=== PATIENT | female | born 1955 | race Caucasian/White ===

== ENCOUNTER 2024-12-06 09:07 | Inpatient (IN) | payer OTHER, SELFPAY ==
[2024-12-06 09:09] VITALS: BP 182/87; PULSE 89; RESP 16; TEMP 36.1; O2SAT 99; BMI 33.9
[2024-12-06 09:11] VITALS: BP 180/80; PULSE 82; RESP 16; TEMP 36.6; O2SAT 99
--- NOTE | 2024-12-06 09:36 | CT_ITS ---
EXAM: CT Abdomen and Pelvis With Intravenous Contrast CLINICAL INDICATION: TECHNIQUE: Axial computed tomography images of the abdomen and pelvis with intravenous contrast. This CT exam was performed using one or more of the following dose reduction techniques: automated exposure control, adjustment of the mA and/or kV according to patient size, and/or use of iterative reconstruction technique. COMPARISON: No relevant prior studies available. FINDINGS: LUNG BASES: Unremarkable. No mass. No consolidation. ABDOMEN: LIVER: Hepatomegaly with fatty infiltration. GALLBLADDER AND BILE DUCTS: Unremarkable. No calcified stones. No ductal dilation. PANCREAS: Unremarkable. No mass. No ductal dilation. SPLEEN: Unremarkable. No splenomegaly. ADRENALS: Unremarkable. No mass. KIDNEYS AND URETERS: Severe bilateral hydronephrosis, bilaterally, greater on the right. No obstructing calculus. STOMACH AND BOWEL: Fecal retention in the colon consistent with constipation. No obstruction. No mucosal thickening. PELVIS: APPENDIX: No findings to suggest acute appendicitis. BLADDER: Unremarkable. No mass. REPRODUCTIVE: Unremarkable as visualized. ABDOMEN and PELVIS: INTRAPERITONEAL SPACE: Unremarkable. No free air. No significant fluid collection. BONES/JOINTS: No acute fracture. No dislocation. SOFT TISSUES: Unremarkable. VASCULATURE: Unremarkable. No abdominal aortic aneurysm. LYMPH NODES: Unremarkable. No enlarged lymph nodes. CT/Abdomen/Pelvis W IV Cont ONLY IMPRESSION: 1. Severe bilateral hydronephrosis, bilaterally, greater on the right. No obs tructing calculus. 2. Hepatomegaly with fatty infiltration. 3. Fecal retention in the colon consistent with constipation. Reading [facility]
--- NOTE | 2024-12-06 09:42 | EDS_ITS ---
HPI History of Present Illness Chief Complaint: Flank Pain Narrative Narrative: Patient is a 69-year-old female with no known significant past medical history who presented to the emerged part with a chief complaint of left flank pain. Patient states that her symptoms started again recently. She states that in October she was diagnosed with a urinary tract infection was placed on Keflex this was not sent for culture she states. Patient states that she was seen at [facility] had blood work and a CT performed at that point time was noted to be abnormal. She was referred to urology and states that they attempted to call urology however was unable to get in until December therefore they came here for further evaluation management. Patient denies any trauma or picking up any heavy. Patient states that her pain is on her right side and wraps around to the anterior portion of her abdomen PFSH PFS Medical History no medical history Home Medications ?Medication ?Instructions ?Recorded ?Last Taken ?Type NK 12/06/24 Unknown History Allergy/AdvReac Type Severity Reaction Status Date / Time No Known Allergies Allergy Verified 12/06/24 09:08 Family History no significant family his Surgical History no surgical history Social History Smoking Status: Never smoker ROS ROS ED ROS Narrative Constitutional: Denies fevers, chills, headaches, lightness, dizziness Cardiovascular: Denies chest pain or palpitations Respiratory: Denies coughing wheezing shortness of breath Abdomen: Complains of some right side abdominal discomfort radiating from her back as noted above denies nausea vomiting diarrhea : Denies any urinary symptoms Neurological: Denies numbness, weakness, tingling Musculoskeletal: Complains of right sided back pain as noted above Skin: Denies any rashes or lesions EXAM Physical Exam Narrative Exam Narrative: General: Patient was lying in bed rest comfortably did not appear to be acute distress Head: Atraumatic, normocephalic Eyes: PERRL bilaterally, EOMI bilaterally, no conjunctival injection noted Neck: Soft, supple, trachea midline Cardiovascular: Regular rate and rhythm Respiratory: Clear to auscultation bilaterally Abdomen: Soft, nondistended, no tenderness to palpation, bowel sounds present x 4 no CVA tenderness noted on exam Musculoskeletal: No tenderness palpation midline thoracic lumbar spine Extremities: +5/5 strength noted in the bilateral upper and lower extremities, radial pulses +2/4 in the bilateral extremities Neurological: Patient following commands and that she was at [facility] years 2024 Skin: Warm, dry, intact no rashes or lesions noted Const Vital Signs: 12/06/24 09:09 12/06/24 09:11 12/06/24 10:34 Temperature 97 F L 98 F 98.3 F Temperature Source Temporal Oral Oral Pulse Rate 89 82 72 Respiratory Rate 16 16 16 Blood Pressure 182/87 H 180/80 H 167/79 H Blood Pressure Mean 118 113 108 Pulse Ox 99 99 98 Oxygen Delivery Method Room Air Room Air Room Air MDM MDM MDM Narrative Medical decision making narrative: Patient is a 69-year-old female who presented to the Emergency Department chief complaint of right-sided flank pain. On the differential diagnose includes but not limited to UTI, pyelonephritis, urolithiasis, AAA, appendicitis. Once workup is obtained reviewed she will be reevaluated. At 9:45 AM patient states that she does not need thing for pain control. Patient CBC reviewed and showed no evidence leukocytosis white blood count normal at 6.4, he was 13.5, plate count normal at 244. Patient sodium normal 140, potassium normal at 3.5, creatinine normal at 0.82. Patient's AST and ALT were 17 and 24 respectively. Patient lipase normal at 34, urinalysis showed no evidence of infection. Patient CT abdomen pelvis with IV contrast showed severe bilateral hydronephrosis greater on the right. No obstructing calculus. Hepatomegaly with fatty infiltration. Fecal retention: Consistent with constipation. Called and discussed case with on-call urologist Dr. Adams who will admit the patient with plan for stent placement. I discussed this plan with the patient and significant other bedside they are agreeable to plan all question concerns answered. Lab Data Labs: Laboratory Results - last 24 hr 12/06/24 12/06/24 09:20 09:43 WBC 6.4 RBC 4.95 Hgb 13.5 Hct 42.2 MCV 85.3 MCH 27.3 MCHC 32.0 RDW Std Deviation 49.3 H RDW Coeff of Dena 15.9 H Plt Count 244 MPV 9.4 Immature Gran % (Auto) 0.500 Neut % (Auto) 67.1 Lymph % (Auto) 25.7 [place] % (Auto) 5.3 Eos % (Auto) 0.9 Baso % (Auto) 0.5 Absolute Neuts (auto) 4.3 Absolute Lymphs (auto) 1.65 Nucleated RBC % 0 Sodium 140 Potassium 3.5 Chloride 106 Carbon Dioxide 26.0 Anion Gap 8 BUN 11 Creatinine 0.82 Estim Creat Clear Calc 66.98 Est GFR (MDRD) Af Amer 89 Est GFR (MDRD) Non-Af 74 BUN/Creatinine Ratio 13.4 Glucose 115 H Calcium 9.8 Total Bilirubin 0.60 AST 17 ALT 24 Alkaline Phosphatase 95 Total Protein 8.2 Albumin 3.9 Globulin 4.3 H Albumin/Globulin Ratio 0.9 Lipase 34 L Urine Color Yellow Urine Clarity Clear Urine pH 6.5 Ur Specific [place] 1.010 Urine Protein Negative Urine Glucose (UA) Normal Urine Ketones Negative Urine Occult Blood Negative Urine Nitrite Negative Urine Bilirubin Negative Urine Urobilinogen Normal Ur Leukocyte Esterase 25 H Urine RBC 0 SEEN Urine WBC 0-5 SEEN Ur Squamous Epith Cells 0-5 SEEN Ur Transition Epith Cell 0-5 SEEN Amorphous Sediment 1+ Urine Bacteria 1+ Urine Mucus 0 SEEN Radiography Diagnostic Testing: Clinical Impression(s) from Imaging Studies Abdomen/Pelvis CT 12/06/24 09:36 IMPRESSION: 1. Severe bilateral hydronephrosis, bilaterally, greater on the right. No obstructing calculus. 2. Hepatomegaly with fatty infiltration. 3. Fecal retention in the colon consistent with constipation. Reading Location: [facility] Discharge Plan Triage Chief Complaint: Flank Pain ED Provider: Aubery Yap Dx/Rx/DC Orders Clinical Impression: Bilateral hydronephrosis, Acute right flank pain Primary Care Provider: Felecia Adames Referrals: Care Physician,No Primary [Non-Staff] - Print Language: Slovak Disposition Disposition: Acute Care [facility]
[2024-12-06] MEDS: 0.9% Normal Saline (1000mL) 1,000 ML 999 ML IV (09:46)
[2024-12-06 09:47] LABS: Mucous, Urine 0 SEEN /hpf (<or=2+)
[2024-12-06 09:56] LABS: Color, Urine Yellow (Yellow); Glucose, Dipstick Normal (Normal); Ketone-Dipstick Negative (Negative); Leukocyte Esterase-Dipstick 25 /ul (Negative); Nitrite-Dipstick Negative (Negative); Occult Blood-Urine Negative /ul (Negative); Protein-Dipstick Negative (Negative); Urine Bilirubin Dipstick Negative (Negative); Urine Clarity Clear (Clear); Urine Urobilinogen Normal (Normal); Urine pH 6.5 (5.0 - 8.0)
[2024-12-06 10:02] LABS: Absolute Lymphocyte Count 1.65 X10^3/uL (0.83-4.51); Absolute Neutrophil Count 4.3 X10^3/uL (2.0-7.7); Basophil# 0.03 X10^3/uL; Basophil% 0.5 % (0-1); Eosinophil# 0.06 X10^3/uL; Eosinophils% 0.9 % (0-5); Hematocrit 42.2 % (37-47); Hemoglobin 13.5 g/dL (12.0-15.0); Lymphocyte # 1.65 X10^3/ul (0.83-4.51); Lymphocyte % 25.7 % (19-41); Mean Corpuscular Hgb 27.3 pg (27.0-32.0); Mean Corpuscular Volume 85.3 fL (81-99); Mean Platelet Vol. 9.4 fl (6.2-12.0); Monocyte# 0.34 X10^3/uL; Monocyte% 5.3 % (0-10); NRBC Flagged by Analyzer 0 % (0-5); Neutrophil # 4.31 X10^3/uL (2.7-7.7); Neutrophil % 67.1 % (47-70); Platelet Count 244 K/mm3 (150-450); RBC Distribution Width CV 15.9 % (11.6-14.6); RBC Distribution Width SD 49.3 fl (35.1-43.9); Red Blood Count 4.95 M/mm3 (4.2-5.4); White Blood Count 6.4 K/mm3 (4.4-11.0)
[2024-12-06 10:17] LABS: Amorphous Sediment 1+; Bacteria 1+ /hpf (None Seen); Red Blood Cells-Urine 0 SEEN /hpf (0-5); Squamous Epithelial Cells - UA 0-5 SEEN /hpf (5-10); Transitional Epithelial - Ur 0-5 SEEN /hpf (0-5); White Blood Cells 0-5 SEEN /hpf (0-5)
[2024-12-06 10:19] LABS: ALB/GLOB Ratio 0.9 RATIO (0.9-2.4); AST(SGOT) 17 U/L (15-37); Alanine Aminotransfer ALT/SGPT 24 U/L (13-56); Albumin, Serum 3.9 g/dL (3.2-5.0); Alkaline Phosphatase 95 U/L (45-117); Anion Gap 8 (5-15); BUN 11 mg/dL (7-18); BUN/Creat Ratio 13.4 RATIO (10-20); Calcium,Total 9.8 mg/dL (8.5-10.1); Chloride 106 mmol/L (98-107); Creatinine, Serum 0.82 mg/dL (0.55-1.02); EST Glomerular Filtration Rate 74 mL/min (>60); Est Glom Filt Rate - Afr Amer 89 mL/min (>60); Estimated Creatinine Clearance 66.98 ml/min; Globulin 4.3 g/dL (2.2-4.2); Glucose 115 mg/dL (74-106); Lipase 34 U/L (73-393); Potassium 3.5 mmol/L (3.5-5.1); Protein, Total 8.2 g/dL (6.4-8.2); Sodium Level 140 mmol/L (136-145)
[2024-12-06 10:34] VITALS: BP 167/79; PULSE 72; RESP 16; TEMP 36.8; O2SAT 98
--- NOTE | 2024-12-06 10:45 | CM.ED ---
Social work Reason for referral: no PCP Referral source: case find This SW identified patient's lack of PCP and need for resources. This SW entered patient's room, introducing self and role at [facility]. Patient's , Tonye, was bedside. Patient expressed letting registration know of seeing a GROCERY CLERK STOCKING at a practice in [facility], so patient denied needing resources. Patient denied further needs. Upon entering this note, registration had added patient's GROCERY CLERK STOCKING, Felecia Adames. Concha Miramontes, PREP MANAGER, ELECTROMAGNET CRANE OPERATOR
[2024-12-06 12:00] VITALS: BP 158/78; PULSE 69; RESP 16; TEMP 36.8; O2SAT 98
[2024-12-06 12:03] VITALS: BP 167/79; PULSE 72; RESP 16; TEMP 36.8; O2SAT 98
[2024-12-06 12:33] VITALS: BP 172/84; PULSE 70; RESP 17; TEMP 36.9; O2SAT 97
--- NOTE | 2024-12-06 12:34 | HP.PCM_ITS ---
HPI - General General Date of Admission: 12/06/24 Date of Service: 12/06/24 Chief Complaint: Right severe hydronephrosis suspected right UPJ obstruction HPI Narrative JONATHAN DUFFY, is a 69 F who presents to the hospital with right flank pain CAT scan demonstrated severely distended right collecting system and what appears to be a right UPJ obstruction plan to take the patient to surgery for retrograde pyelogram and right stent placement PFSH Medical History no medical history Home Medications ?Medication ?Instructions ?Recorded ?Last Taken ?Type NK 12/06/24 Unknown History Allergy/AdvReac Type Severity Reaction Status Date / Time No Known Allergies Allergy Verified 12/06/24 09:08 Family History no significant family his Surgical History no surgical history Social History Smoking Status: Never smoker ROS Constitutional Constitutional: Denies chills, fever(s) or malaise Eyes Eyes: Denies blurry vision or change in vision ENT HEENT: Reports none Cardiovascular Cardiovascular: Denies chest pain or palpitations Respiratory/Chest Respiratory/Chest: Denies cough or shortness of breath with exertion Gastrointestinal Gastrointestinal: Denies abdominal pain, constipation or diarrhea Musculoskeletal Musculoskeletal: Denies back pain, joint stiffness or joint swelling Integumentary Integumentary: Denies dry skin, jaundice, lesions or rash Neurologic Neurologic: Denies confusion, syncope or weakness Psychiatric Psychiatric: Reports none; Denies anxiety or depression Endocrine Endocrinology: Denies excessive sweating, fatigue or flushing Hematologic/Lymphatic Hematologic/Lymphatic: Denies anemia, easy bleeding or easy bruising Vital Signs Vital Signs Vital Signs: 12/06/24 09:09 12/06/24 09:11 12/06/24 10:34 Temperature 97 F L 98 F 98.3 F Temperature Source Temporal Oral Oral Pulse Rate 89 82 72 Respiratory Rate 16 16 16 Blood Pressure 182/87 H 180/80 H 167/79 H Blood Pressure Mean 118 113 108 Pulse Ox 99 99 98 Oxygen Delivery Method Room Air Room Air Room Air 12/06/24 12:00 12/06/24 12:03 Temperature 98.2 F 98.3 F Temperature Source Oral Pulse Rate 69 72 Respiratory Rate 16 16 Blood Pressure 158/78 H 167/79 H Blood Pressure Mean 104 108 Pulse Ox 98 98 Oxygen Delivery Method Weight Weight: 84.187 kg Body Mass Index (BMI) 33.9 Results Lab / Micro Data 12/06/24 09:43 12/06/24 09:43 Labs: Laboratory Results - last 24 hr 12/06/24 09:20: Urine Color Yellow, Urine Clarity Clear, Urine pH 6.5, Ur Specific [place] 1.010, Urine Protein Negative, Urine Glucose (UA) Normal, Urine Ketones Negative, Urine Occult Blood Negative, Urine Nitrite Negative, Urine Bilirubin Negative, Urine Urobilinogen Normal, Ur Leukocyte Esterase 25 H, Urine RBC 0 SEEN, Urine WBC 0-5 SEEN, Ur Squamous Epith Cells 0-5 SEEN, Ur Transition Epith Cell 0-5 SEEN, Amorphous Sediment 1+, Urine Bacteria 1+, Urine Mucus 0 SEEN 12/06/24 09:43: WBC 6.4, RBC 4.95, Hgb 13.5, Hct 42.2, MCV 85.3, MCH 27.3, MCHC 32.0, RDW Std Deviation 49.3 H, RDW Coeff of Dena 15.9 H, Plt Count 244, MPV 9.4, Immature Gran % (Auto) 0.500, Neut % (Auto) 67.1, Lymph % (Auto) 25.7, [place] % (Auto) 5.3, Eos % (Auto) 0.9, Baso % (Auto) 0.5, Absolute Neuts (auto) 4.3, Absolute Lymphs (auto) 1.65, Nucleated RBC % 0, Sodium 140, Potassium 3.5, Chloride 106, Carbon Dioxide 26.0, Anion Gap 8, BUN 11, Creatinine 0.82, Estim Creat Clear Calc 66.98, Est GFR (MDRD) Af Amer 89, Est GFR (MDRD) Non-Af 74, BUN/Creatinine Ratio 13.4, Glucose 115 H, Calcium 9.8, Total Bilirubin 0.60, AST 17, ALT 24, Alkaline Phosphatase 95, Total Protein 8.2, Albumin 3.9, Globulin 4.3 H, Albumin/Globulin Ratio 0.9, Lipase 34 L Imaging Radiology Impression Abdomen/Pelvis CT 12/06/24 09:36 IMPRESSION: 1. Severe bilateral hydronephrosis, bilaterally, greater on the right. No obstructing calculus. 2. Hepatomegaly with fatty infiltration. 3. Fecal retention in the colon consistent with constipation. Reading Location: [facility] Assessment & Plan Assessment/Plan (1) Acute right flank pain: PLAN: 69-year-old female with right severe flank pain what appears to be a right UPJ obstruction, will plan for surgery tomorrow for cystoscopy right retrograde And right stent placement (2) Bilateral hydronephrosis:
--- NOTE | 2024-12-06 12:36 | DCINST_ITS ---
Discharge Instructions Diet Discharge Diet: No restrictions and Soft diet DC O2, CPAP, BIPAP needs Home O2 Discharge instructions: No Dressing / Incision Discharge Activity: No Restrictions Follow Up Care Please Follow Up With: Otoniel Adams MD When: call [phone] Test Results: Test results from this visit will be discussed in further detail at your follow- up appointment, if applicable. Discharge Plan Admission Admit Date/Time: 12/06/24 12:06 Attending Provider: Otoniel Adams Primary Care Provider: Felecia Adames Discharge Orders/Prescriptions Prescriptions: No Action NK Referrals / Follow Up: Care Physician,No Primary [Non-Staff] - Felecia Adames, SUPERVISOR IN CIRCUIT TESTING-C [Primary Care Provider] -
[2024-12-06 12:37] VITALS: BMI 30.6
== END 2024-12-06 13:42 | disposition home or self-care (01) | DRG 694 ==
LOC: ED 12:04 → PCU 12:10
PROVIDERS: Admitting Provider Urology; Emergency Provider Emergency Medicine; PCP Nurse Practitioner Family; Visit Provider Urology
DX: N13.0 Hydronephrosis with ureteropelvic junction obstruction (principal)
CPT/HCPCS: 74177; 80053; 81001; 83690; 85025; 99283; Q9967

== ENCOUNTER 2024-12-08 12:22 | Day surgery (SDC) | payer SELFPAY ==
[2024-12-08] VITALS (8 sets, daily range): BP systolic 141–165; BP diastolic 75–78; PULSE 53–69; RESP 16–20; TEMP 36.9–37.6; O2SAT 97–100; BMI 30.6
--- NOTE | 2024-12-08 11:50 | PCM.POST.ANE ---
Anesthesia: Postop Eval I Current Vital Signs Temperature: 98.9 F Pulse Rate: 58 Blood Pressure: 157/77 Respiratory Rate: 16 Pulse Ox: 97 Oxygen Delivery Method: Room Air Assessment Airway patent: Yes Spontaneous unlabored respirations: Yes Mental status: Awake nausea: No Vomiting: No Anesthesia Complication: No Fluid Hydration Crystalloid volume administer (ml): 700 Total IV fluid infused: 700 Progress Note Anesthesia document: Postop Eval 1 completed: Yes
--- NOTE | 2024-12-08 12:43 | PCM.HP.STD ---
HPI - General General Date of Service: 12/08/24 Chief Complaint: Right UPJ obstruction HPI Narrative JONATHAN DUFFY, is a 69 F who presents to hospital for right retrograde pyelogram and Right stent placement for UPJ obstruction. [facility] Medical History (Updated 12/07/24 @ 10:00 by Mary Melo) Wears glasses Post-menopausal Anemia Shortness of breath on exertion Non-smoker History of edema Home Medications ?Medication ?Instructions ?Recorded ?Last Taken ?Type multivitamin (Daily Multi-Vitamin 1 tab PO DAILY 12/07/24 Unknown History tablet) Allergy/AdvReac Type Severity Reaction Status Date / Time No Known Allergies Allergy Verified 12/07/24 09:53 Family History no significant family his Surgical History (Updated 12/07/24 @ 10:00 by Mary Melo) Hx of dilation and curettage Hx of appendectomy Social History Smoking Status: Never smoker
[2024-12-08] MEDS: 0.9% Normal Saline (1000mL) 1,000 ML 15 ML IV (13:05)
--- NOTE | 2024-12-08 13:40 | PCM.PRE.AN2 ---
ASA Classification* ASA Classification ASA Classification: 2 Assessment & Plan Anesthesia* Anesthesia Assessment Anesthesia Assessment: Discussed sedation and/or anesthesia options, risks, benefits, and alternatives with patient/parents/legal guardian/POA. Questions invited. The patient/parents/legal guardian/POA seems to understand and agrees to proceed with anesthesia plan. Reviewed the physical assessment, medical history, allergy history and patient home medications list prior to surgery/procedure/anesthetic and documented any changes. Performed airway and anesthesia risk assessments. Anesthesia Type Anesthesia Type: MAC History Source History Obtained from:: Patient and Chart Anesthesia Focused Assessment* Temperature: 99.7 F Pulse Rate: 69 Blood Pressure: 153/75 Respiratory Rate: 16 Pulse Ox: 100 Oxygen Delivery Method: Room Air Airway Assessment Mouth opens: >3 cm Mallampati Score: II Teeth Condition: Caps/Crowns (Patient has several crowns. They are all tight) and Partial (Patient has a permanent left lower bridge) Neck Range of motion (ROM): Full ROM Focused Labs Anesthesia Preop lab: CBC WBC 6.4 K/mm3 (4.4-11.0) 12/06/24 09:43 12/06/24 RBC 4.95 M/mm3 (4.2-5.4) 12/06/24 09:43 12/06/24 Hgb 13.5 g/dL (12.0-15.0) 12/06/24 09:43 12/06/24 Hct 42.2 % (37-47) 12/06/24 09:43 12/06/24 Plt Count 244 K/mm3 (150-450) 12/06/24 09:43 12/06/24 CHEMISTRY Potassium 3.5 mmol/L (3.5-5.1) 12/06/24 09:43 12/06/24 Sodium 140 mmol/L (136-145) 12/06/24 09:43 12/06/24 BUN 11 mg/dL (7-18) 12/06/24 09:43 12/06/24 Creatinine 0.82 mg/dL (0.55-1.02) 12/06/24 09:43 12/06/24 Glucose 115 mg/dL (74-106) H 12/06/24 09:43 12/06/24 COAG Pre-Assessment Diagnosis/Proposed Procedure Planned Operative Procedure(s): RIGHT CYSTO STENT RETROGRADE PYELOGRAM Anesthesia History Anesthesia History - occupational physician: Anesthesia History - occupational physician Hx Hospitalization Yes: 12/06/24 DISCHARGE FROM 12/07/24 09:55 [facility] ISS[facility] Any Problems With Anesthesia No 12/07/24 09:55 Cholinesterase deficiency No 12/07/24 09:55 You/Your Family Experience No 12/07/24 09:55 fever (hyperthermia) with Relationship Recent Exposure to Contagious No 12/08/24 12:56 Disease Does patient have nerve No 12/07/24 09:55 stimulator Patient instructed to have device shut off --Does patient have Pacemaker No 12/08/24 12:56 or ICD? When Was Last Pacemaker Check QUESTION #4 FULL TEXT: You/Your Family Experience fever (hyperthermia) with Anesthesia Last Oral Intake Last Oral intake: Last Oral Intake NPO since 08:00 12/08/24 12:56 Meds taken in AM with sips of No 12/08/24 12:56 water? Meds patient instructed to take am of surgery Any additional information?: Yes NPO since: 08:00 (Patient had tea at 8:00 am) Meds taken in AM with sips of water?: No PONV PONV - occupational physician: PONV - occupational physician Female Yes 12/07/24 09:55 HX of Motion Sickness No 12/07/24 09:55 HX of N/V After Surgery No 12/07/24 09:55 Non-Smoker Yes 12/07/24 09:55 Duration of Surgery greater Yes 12/07/24 09:55 than 60 minutes Number of Risk Factors 3 12/07/24 09:55 PONV Score Moderate Risk 12/07/24 09:55 Height & Weight Height & Weight: Anesthesia: Height & Weight Height 5 ft 2 in 12/08/24 12:56 Weight: 76 kg 12/08/24 12:56 Body Mass Index (BMI) 30.6 12/08/24 12:56 Respiratory Assessment Respiratory Assessment - occupational physician: Respiratory Tract Infection Hx - occupational physician Hx Respiratory Tract Infection No 12/07/24 09:55 STOP Sleep Apnea STOP Sleep Apnea - occupational physician: STOP Sleep Apnea - occupational physician Hx Hypertension No 12/07/24 09:55 Hx Sleep Apnea No 12/07/24 09:55 CPAP BIPAP Do you snore loudly (louder No 12/07/24 09:55 than talking or can be heard Do you often feel tired/ No 12/07/24 09:55 fatigued/ sleepy during daytime? Has anyone observed you stop No 12/07/24 09:55 breathing during sleep? STOP Results Negative 12/07/24 09:55 QUESTION #5 FULL TEXT : Do you snore loudly (louder than talking or can be heard through closed doors)? Tobacco Use History Tobacco Use History - occupational physician: Tobacco Use History - occupational physician Tobacco Use Smoking Status Never smoker 12/07/24 09:55 Hx Tobacco Use No 12/07/24 09:55 Years Smoking Packs Smoked per Day Smoking Cessation Date was within the last 15 years Hx Smoking Cessation Date Hx Smoking Cessation Counseling Hematologic Medial History Hematologic Hx - occupational physician: Hematologic Medical Hx - online community manager Hx of Blood Transfusion No 12/07/24 09:55 Hx of Transfusion in last 3 No 12/07/24 09:55 Months Date of Last Transfusion (if within last 3 months) Ever experience any problems No 12/07/24 09:55 with transfusion(s)? Specify any problems Hx of Preganancy in last 3 No 12/07/24 09:55 Months Nurse Filling Out Transfusion DSCHRIBER 12/07/24 09:55 & Questions: Date: 12/07/24 12/07/24 09:55 Time: 09:56 12/07/24 09:55 Patient unable to answer at this time (ie. confused, unrespo /Reproduction History /Reproductive History - occupational physician: /Reproductive Hx- occupational physician Hx Now No 12/07/24 09:55 Gestational Age (in weeks): EDC: Hx Hx Para Hx Section SAB No 12/07/24 09:55 Active Medications Active Medications: Current Medications Generic Name Dose Route Start Last Admin Trade Name Freq PRN Reason Stop Dose Admin Cefazolin Sodium 2 gm/ N/A 20 mls @ 400 mls/hr 12/08/24 14:10 IV 12/08/24 14:12 PREOP ONE Sodium Chloride 1,000 mls @ 15 mls/hr 12/08/24 12:50 12/08/24 13:05 IV 12/14/24 02:09 15 mls/hr .Q48H KATHYA Administration Protocol [facility] Medical History Wears glasses Post-menopausal Anemia Shortness of breath on exertion Non-smoker History of edema Home Medications ?Medication ?Instructions ?Recorded ?Last Taken ?Type multivitamin (Daily Multi-Vitamin 1 tab PO DAILY 12/07/24 12/07/24 History tablet) Allergy/AdvReac Type Severity Reaction Status Date / Time No Known Allergies Allergy Verified 12/08/24 12:55 Surgical History Hx of dilation and curettage Hx of appendectomy Social History Smoking Status: Never smoker Review of Systems (Anesthesia) ROS Narrative System reviewed and no additional complaints, except as documented.
--- NOTE | 2024-12-08 14:18 | PCM.DC ---
Discharge Instructions Diet Discharge Diet: No restrictions DC O2, CPAP, BIPAP needs Home O2 Discharge instructions: No Dressing / Incision Discharge Activity: Return to Normal Activity and May Not Drive (while taking narcotic pain medications.) Dressing / Incision Call your doctor if you observe: Fever of 101 or Higher Follow Up Care Please Follow Up With: Otoniel Adams MD When: Call [phone] for an appointment Test Results: Test results from this visit will be discussed in further detail at your follow-up appointment, if applicable. Discharge Plan Admission Primary Reason for Your Visit: right stent placement Attending Provider: Otoniel Adams Primary Care Provider: Felecia Adames Instructions Print Language: Citizen Of [place] Discharge Orders/Prescriptions Prescriptions: No Action multivitamin [Daily Multi-Vitamin] Tablet 1 tab PO DAILY Referrals / Follow Up: Felecia Adames, CONSULAR OFFICER-C [Primary Care Provider] - Disposition Disposition (needs filled in before D/C Order can be placed): Home, Self Care
[2024-12-08] MEDS: Cefazolin 2 GM in Syringe IV (14:35)
--- NOTE | 2024-12-08 16:00 | PCM.POST.ANE ---
Anesthesia: Postop Eval I Current Vital Signs Temperature: 98.9 F Pulse Rate: 58 Blood Pressure: 157/77 Respiratory Rate: 20 Pulse Ox: 97 Assessment Airway patent: Yes Spontaneous unlabored respirations: Yes nausea: No Vomiting: No Anesthesia Complication: No Fluid Hydration Crystalloid volume administer (ml): 0 Total IV fluid infused: 0 Progress Note Anesthesia document: Postop Eval 1 completed: Yes
--- NOTE | 2024-12-08 16:27 | PCM.OPRPT ---
Operative Report (Standard) Operative Information Date of Procedure: 12/08/24 Pre-Operative Diagnosis: Right UPJ obstruction and hydronephrosis Post-Operative Diagnosis: The same Surgery/Procedure Performed: Cystoscopy right retrograde Polygram and right stent placement carbonizer tester: No Type of Anesthesia: MAC RN Documented Start/Stop Times: Operation Date: 12/08/24 14:10 Case Time Into Pre-Op 12/08/24 12:47 Out of Pre-Op 12/08/24 14:24 Anesthesia Start 12/08/24 14:28 Into Room 12/08/24 14:28 Procedure Start 12/08/24 14:42 Procedure End 12/08/24 14:46 Anesthesia End 12/08/24 14:52 Out of Room 12/08/24 14:52 Into Recovery 12/08/24 14:56 Out of Recovery 12/08/24 15:17 Into Phase II Recovery 12/08/24 15:18 Out of Phase II 12/08/24 15:57 Procedure Start Time: 14:42 Procedure Stop Time: 14:46 Select all DRAINS/GRAFTS/IMPLANTS that apply: Drains Drain details: Right stent placement Estimated Blood Loss: None Specimen collected: No Description of surgery: Indication 69-year-old female been having seevere right flank pain CAT scan was done demonstrated severely distended right renal pelvis very suspicious for a right UPJ obstruction so today were to take her surgery and he retrograde Polygram place a stent in the right side Patient back to the operating room after smooth induction of anesthesia she is placed in dorsal lithotomy position, urethra medullary prepped and draped unusual store fashion went into the bladder with a 21 Palestinian rigid cysto urethra scope calculated the right ureter orfice with a glide wire and upon a catheter for directly Polygram you could see contrast going up to the kidney and then a spray where the stenotic ureter was kicked off and a severely dilated right renal pelvis consistent with right UPJ obstruction I then placed a wire up into the right kidney and then over the wire that the stent of the six Palestinian by 26cm stent once a stent was a good position than the wire was pulled the stent quote in the kidney bladder good position to follow up in the office for a postop check and what to get her set up for a right UPJ repair. Microscopic robotic policy. Surgical Findings: Obstruction of the right ureteropelvic junction, hydronephrosis right kidney Complications Complications: No
--- NOTE | 2024-12-08 16:59 | POSTOPAN2_ITS ---
Anesthesia Postop Eval I Sum Postop Eval Completion status Anesthesia document: Postop Eval 1 completed: Yes Anesthesia Postop Eval I Summary Anesthesia Postop Eval I Summary: Anesthesia Postop Eval I: Assessment Summary Airway patent Yes 12/08/24 16:58 PAYING [email or web address] Spontaneous unlabored Yes 12/08/24 16:58 PAYING TELLER.CSIR respirations Mental status nausea No 12/08/24 16:58 PAYING TELLER.CSIR Vomiting No 12/08/24 16:58 PAYING TELLER.CSIR Anesthesia Postop Eval I: Fluid Summary Crystalloid volume administer 0 12/08/24 16:58 PAYING TELLER.CSIR (ml) Colloids volume administered ( ml) Blood Product volume administered (ml) Total IV fluid infused 0 12/08/24 16:58 PAYING TELLER.CSIR Anesthesia Postop Eval I: Summary Notes Anesthesia Complication No 12/08/24 16:58 PAYING TELLER.CSIR Anesthesia Complication Comment: Post-operative progress note Anesthesia: Postop Eval II Evaluation Mental status: Awake Pain Level: 1 nausea: No Vomiting: No
--- NOTE | 2024-12-08 16:59 | PCM.POSTANE2 ---
Anesthesia Postop Eval I Sum Postop Eval Completion status Anesthesia document: Postop Eval 1 completed: Yes Anesthesia Postop Eval I Summary Anesthesia Postop Eval I Summary: Anesthesia Postop Eval I: Assessment Summary Airway patent Yes 12/08/24 16:58 POLICE DETECTIVE.CSIR Spontaneous unlabored Yes 12/08/24 16:58 POLICE DETECTIVE.CSIR respirations Mental status nausea No 12/08/24 16:58 POLICE DETECTIVE.CSIR Vomiting No 12/08/24 16:58 POLICE DETECTIVE.CSIR Anesthesia Postop Eval I: Fluid Summary Crystalloid volume administer 0 12/08/24 16:58 POLICE DETECTIVE.CSIR (ml) Colloids volume administered ( ml) Blood Product volume administered (ml) Total IV fluid infused 0 12/08/24 16:58 POLICE DETECTIVE.CSIR Anesthesia Postop Eval I: Summary Notes Anesthesia Complication No 12/08/24 16:58 POLICE DETECTIVE.CSIR Anesthesia Complication Comment: Post-operative progress note Anesthesia: Postop Eval II Evaluation Mental status: Awake Pain Level: 1 nausea: No Vomiting: No
== END 2024-12-08 15:58 | disposition home or self-care (01) ==
LOC: SDC 12:26 → AC 12:32
PROVIDERS: PCP Nurse Practitioner Family; Referring Provider Urology; Visit Provider Urology
PROC: (CPT 52332; principal; 2024-12-08 14:00)
DX: N13.0 Hydronephrosis with ureteropelvic junction obstruction (principal)
CPT/HCPCS: 52332; 00910; 76000; C2617; J2405

== ENCOUNTER 2025-01-19 07:34 | Observation (INO) | payer SELFPAY ==
[2025-01-19] VITALS (17 sets, daily range): BP systolic 111–152; BP diastolic 64–85; PULSE 60–82; RESP 12–16; TEMP 36.4–37.3; O2SAT 92–99; BMI 30.2
--- NOTE | 2025-01-19 06:13 | EKG12_ITS ---
Test Reason : PREOP Blood Pressure : */* mmHG Vent. Rate : 72 BPM Atrial Rate : 72 BPM P-R Int : 180 ms QRS Dur : 82 ms QT Int : 406 ms P-R-T Axes : 47 1 49 degrees QTcB Int : 444 ms Normal sinus rhythm Normal ECG No previous ECGs available Confirmed by MELQUIADES GARCIA, KATIE ([id number]), copy editor BONNIE LIZAMA ([id number]) on 01/24/2025 2:01:45 PM Referred By: Otoniel Adams Confirmed By: KATIE ARNETT MD
--- NOTE | 2025-01-19 06:49 | PCM.PRE.AN2 ---
ASA Classification* ASA Classification ASA Classification: 2 Assessment & Plan Anesthesia* Anesthesia Assessment Anesthesia Assessment: Discussed sedation and/or anesthesia options, risks, benefits, and alternatives with patient/parents/legal guardian/POA. Questions invited. The patient/parents/legal guardian/POA seems to understand and agrees to proceed with anesthesia plan. Reviewed the physical assessment, medical history, allergy history and patient home medications list prior to surgery/procedure/anesthetic and documented any changes. Performed airway and anesthesia risk assessments. Anesthesia Type Anesthesia Type: General Anesthesia Focused Assessment* Temperature: 99.2 F Pulse Rate: 71 Blood Pressure: 152/85 Respiratory Rate: 16 Pulse Ox: 99 Airway Assessment Mouth opens: >3 cm Mallampati Score: II Focused Labs Anesthesia Preop lab: CBC WBC 6.4 K/mm3 (4.4-11.0) 12/06/24 09:43 12/06/24 RBC 4.95 M/mm3 (4.2-5.4) 12/06/24 09:43 12/06/24 Hgb 13.5 g/dL (12.0-15.0) 12/06/24 09:43 12/06/24 Hct 42.2 % (37-47) 12/06/24 09:43 12/06/24 Plt Count 244 K/mm3 (150-450) 12/06/24 09:43 12/06/24 CHEMISTRY Potassium 3.5 mmol/L (3.5-5.1) 12/06/24 09:43 12/06/24 Sodium 140 mmol/L (136-145) 12/06/24 09:43 12/06/24 BUN 11 mg/dL (7-18) 12/06/24 09:43 12/06/24 Creatinine 0.82 mg/dL (0.55-1.02) 12/06/24 09:43 12/06/24 Glucose 115 mg/dL (74-106) H 12/06/24 09:43 12/06/24 COAG Pre-Assessment Diagnosis/Proposed Procedure Planned Operative Procedure(s): RIGHT ROBOTIC PYELOPLASTY Anesthesia History Anesthesia History - customer service and sales consultant: Anesthesia History - customer service and sales consultant Hx Hospitalization Yes: 12/06/24 DISCHARGE FROM 01/07/25 11:27 HOSPTIAL FOR KIDNEY ISSUE Any Problems With Anesthesia No 01/07/25 11:27 Cholinesterase deficiency No 01/07/25 11:27 You/Your Family Experience No 01/07/25 11:27 fever (hyperthermia) with Relationship Recent Exposure to Contagious No 01/19/25 06:39 Disease Does patient have nerve No 01/07/25 11:27 stimulator Patient instructed to have device shut off --Does patient have Pacemaker No 01/19/25 06:39 or ICD? When Was Last Pacemaker Check QUESTION #4 FULL TEXT: You/Your Family Experience fever (hyperthermia) with Anesthesia Last Oral Intake Last Oral intake: Last Oral Intake NPO since 05:45 01/19/25 06:39 Meds taken in AM with sips of Yes 01/19/25 06:39 water? Meds patient instructed to take am of surgery PONV PONV - customer service and sales consultant: PONV - customer service and sales consultant Female Yes 01/07/25 11:27 HX of Motion Sickness No 01/07/25 11:27 HX of N/V After Surgery No 01/07/25 11:27 Non-Smoker Yes 01/07/25 11:27 Duration of Surgery greater Yes 01/07/25 11:27 than 60 minutes Number of Risk Factors 3 01/07/25 11:27 PONV Score Moderate Risk 01/07/25 11:27 Height & Weight Height & Weight: Anesthesia: Height & Weight Height 5 ft 2 in 01/19/25 06:39 Weight: 75 kg 01/19/25 06:39 Body Mass Index (BMI) 30.2 01/19/25 06:39 Respiratory Assessment Respiratory Assessment - customer service and sales consultant: Respiratory Tract Infection Hx - customer service and sales consultant Hx Respiratory Tract Infection No 01/07/25 11:27 STOP Sleep Apnea STOP Sleep Apnea - customer service and sales consultant: STOP Sleep Apnea - customer service and sales consultant Hx Hypertension No 01/07/25 11:27 Hx Sleep Apnea No 01/07/25 11:27 CPAP BIPAP Do you snore loudly (louder No 01/07/25 11:27 than talking or can be heard Do you often feel tired/ No 01/07/25 11:27 fatigued/ sleepy during daytime? Has anyone observed you stop No 01/07/25 11:27 breathing during sleep? STOP Results Negative 01/07/25 11:27 QUESTION #5 FULL TEXT : Do you snore loudly (louder than talking or can be heard through closed doors)? Tobacco Use History Tobacco Use History - customer service and sales consultant: Tobacco Use History - customer service and sales consultant Tobacco Use Smoking Status Never smoker 01/07/25 11:27 Hx Tobacco Use No 01/07/25 11:27 Years Smoking Packs Smoked per Day Smoking Cessation Date was within the last 15 years Hx Smoking Cessation Date Hx Smoking Cessation Counseling Hematologic Medial History Hematologic Hx - customer service and sales consultant: Hematologic Medical Hx - respiratory care program director Hx of Blood Transfusion No 01/07/25 11:27 Hx of Transfusion in last 3 No 01/07/25 11:27 Months Date of Last Transfusion (if within last 3 months) Ever experience any problems No 01/07/25 11:27 with transfusion(s)? Specify any problems Hx of Preganancy in last 3 No 01/07/25 11:27 Months Nurse Filling Out Transfusion DSCHRIBER 01/07/25 11:27 & Questions: Date: 01/07/25 01/07/25 11:27 Time: 11:29 01/07/25 11:27 Patient unable to answer at this time (ie. confused, unrespo /Reproduction History /Reproductive History - customer service and sales consultant: /Reproductive Hx- customer service and sales consultant Hx Now No 01/07/25 11:27 Gestational Age (in weeks): EDC: Hx Hx Para Hx Section SAB No 01/07/25 11:27 Active Medications Active Medications: Current Medications Generic Name Dose Route Start Last Admin Trade Name Freq PRN Reason Stop Dose Admin Cefazolin Sodium 2 gm/ N/A 20 mls @ 400 mls/hr 01/19/25 07:30 IV 01/19/25 07:32 PREOP ONE Sodium Chloride 1,000 mls @ 15 mls/hr 01/19/25 06:05 IV .Q48H KATHYA PFSH Medical History Wears glasses Post-menopausal Anemia Shortness of breath on exertion Non-smoker History of edema Home Medications ?Medication ?Instructions ?Recorded ?Last Taken ?Type multivitamin (Daily Multi-Vitamin 1 tab PO DAILY 12/07/24 12/07/24 History tablet) arnica 200c homeopathic 01/19/25 01/19/25 History Allergy/AdvReac Type Severity Reaction Status Date / Time No Known Allergies Allergy Verified 01/19/25 06:37 Surgical History History of cystoscopy Hx of dilation and curettage Hx of appendectomy Social History Smoking Status: Never smoker Review of Systems (Anesthesia) ROS Narrative System reviewed and no additional complaints, except as documented.
[2025-01-19] MEDS: 0.9% Normal Saline (1000mL) 1,000 ML 15 ML IV (06:51)
[2025-01-19] MEDS: Cefazolin 2 GM in Syringe IV (07:21)
--- NOTE | 2025-01-19 07:30 | URE_PTH ---
PATIENT: JONATHAN DUFFY LOC: [facility] U#:[id number] AGE/SX: 69/F ROOM: [facility]314 RE01/19/[address]: Dr. Otoniel Adams MD : 1955 BED: 1 DIS: 01/20/2025 SPEC #: [id number] RECD: 01/19/25 09:42 STATUS: JOHN TAVERA #: [id number] ANDRES: 01/19/25 07:[address]: Otoniel Adams DEPT: SURGICAL PATHOLOGY RECD BY: Keeley Poole ENTERED: 01/19/25 10:35 SP TYPE: URETER BX OTHR DR: Felecia Adames, SERVICE SUPERVISOR-C Tissues: Ureter, NOS Procedures: Surgery Specimen Level IV HEADER OPERATION: Laparoscopic robotic pyeloplasty PRE-OP DIAGNOSIS: Other obstructive defects of renal pelvis and ureter TISSUE SUBMITTED: A- Right ureter segment MICROSCOPIC DIAGNOSIS A. Right ureter, segmental resection: * Benign urothelium with acute and chronic inflammation. MICROSCOPIC DESCRIPTION Slides are reviewed. GROSS DESCRIPTION A. Received in formalin in a container labeled with the patient's name, date of , and R ureter segment is an on oriented, espinosa-pink, tubular structure of soft tissue measuring 0.9 cm in length with a diameter ranging from 0.3 to 0.5 cm. The outer surfaces inked black (opposing margins are over-inked red and yellow). Serial sections reveal a pinpoint lumen with espinosa-pink mucosa. Submitted entirely in A1. KAREN 01/19/2025 CPT:41488
--- NOTE | 2025-01-19 07:37 | PCM.HP.STD ---
HPI - General General Date of Service: 01/19/25 Chief Complaint: Right UPJ obstruction HPI Narrative JONATHAN DUFFY, is a 69 F who presents right robotic pyeloplasty and stent placement PFSH Medical History Wears glasses Post-menopausal Anemia Shortness of breath on exertion Non-smoker History of edema Home Medications ?Medication ?Instructions ?Recorded ?Last Taken ?Type multivitamin (Daily Multi-Vitamin 1 tab PO DAILY 12/07/24 12/07/24 History tablet) arnica 200c homeopathic 01/19/25 01/19/25 History docusate sodium 100 mg capsule 100 mg PO BID #20 caps 01/19/25 Unknown Rx (Colace) oxycodone 5 mg tablet 5 mg PO Q6H PRN pain 3 days #14 01/19/25 Unknown Rx tabs Allergy/AdvReac Type Severity Reaction Status Date / Time No Known Allergies Allergy Verified 01/19/25 06:37 Surgical History History of cystoscopy Hx of dilation and curettage Hx of appendectomy Social History Smoking Status: Never smoker Vital Signs Vital Signs Vital Signs: 01/19/25 06:39 01/19/25 06:39 01/19/25 06:49 Temperature 99.2 F H 99.2 F H Temperature Source Temporal Pulse Rate 71 71 Respiratory Rate 16 16 Respiratory Pattern Normal Blood Pressure 152/85 H 152/85 H Blood Pressure Mean 107 Blood Pressure Source Monitor Blood Pressure Position Semi-Fowlers Blood Pressure Location Left Arm Pulse Ox 99 99 Oxygen Delivery Method Room Air Weight Weight: 75 kg Body Mass Index (BMI) 30.2
--- NOTE | 2025-01-19 07:38 | DCINST_ITS ---
Discharge Instructions Diet Discharge Diet: No restrictions DC O2, CPAP, BIPAP needs Home O2 Discharge instructions: No Dressing / Incision Discharge Activity: Return to Normal Activity and May Not Drive (while taking narcotic pain medications.) Dressing / Incision Call your doctor if you observe: Fever of 101 or Higher Catheter: Bella to leg bag and Bella to large bag Drain: [place]ake Follow Up Care Please Follow Up With: Otoniel Adams MD When: Call [phone] for an appointment Test Results: Test results from this visit will be discussed in further detail at your follow- up appointment, if applicable. Discharge Plan Admission Primary Reason for Your Visit: pyeloplasty right Attending Provider: Otoniel Adams Primary Care Provider: Felecia Adames Instructions Print Language: Belizean Discharge Orders/Prescriptions Prescriptions: New oxycodone 5 mg tablet 5 mg PO Q6H PRN (Reason: pain) 3 Days Qty: 14 0RF docusate sodium [Colace] 100 mg capsule 100 mg PO BID Qty: 20 0RF No Action multivitamin [Daily Multi-Vitamin] Tablet 1 tab PO DAILY arnica 200c Referrals / Follow Up: Otoniel Adams MD [Med Staff - Active Staff] - Felecia Adames, TIMBER ESTIMATOR-C [Primary Care Provider] - Disposition Disposition (needs filled in before D/C Order can be placed): Home, Self Care
[2025-01-19] MEDS: Bupivacaine Mpf 0.5% 30 ML VIAL (08:55)
--- NOTE | 2025-01-19 09:09 | OP.PCM_ITS ---
Operative Report (Standard) Operative Information Date of Procedure: 01/19/25 Pre-Operative Diagnosis: Right UPJ obstruction Post-Operative Diagnosis: The same Surgery/Procedure Performed: Laparoscopic robotic assisted right UPJ repair, pyeloplasty sewing machine operator floorperson: Yes Seasonal Sales Associate: Andrew Bhatia Tasks completed by assistant project engineer: Opening, Closing, Opening & closing, Harvesting grafts, Dissecting tissue, Removing tissue, Implanting device, Altering tissue, Insert Trochanter, Hemostasis: Clamp, Hemostasis: Tie, Hemostasis: Electrocautery, Trocar, Retracting and Other Type of Anesthesia: General RN Documented Start/Stop Times: Operation Date: 01/19/25 07:30 Case Time Into Pre-Op 01/19/25 06:04 Out of Pre-Op 01/19/25 07:15 Procedure Start Time: 07:30 Procedure Stop Time: 09:09 Select all DRAINS/GRAFTS/IMPLANTS that apply: Drains Drain details: Bella catheter and NIALL drain and stent Estimated Blood Loss: Minimal Specimen collected: Yes Description of specimen(s) removed: UPJ segment Description of surgery: Indication 69-year-old female has developed a right UPJ obstruction she had a stent placed today we will take her to surgery to do a right UPJ repair robotically with a laparoscopic approach. Patient is taken back to the operating room after smooth induction of anesthesia she was placed in the secured to the table padded axillary roll and arm was secured to the side she was prepped and draped in usual sterile fashion made a small incision in the mid abdomen probed the fascia and the put a Veress needle through the fascia insufflated the peritoneal cavity with CO2 gas I then immediately recommends of the extensive out of diffusions and looks like she has an prior abdominal surgery looks perhaps may be a appendix surgery I then docked the robot I had a release these adhesions that were in the anterior abdominal wall extensively these were all released after releasing the adhesions then the colon was reflected off the kidney and then identified the kidney. I then identified the ureter and the drought's fascia and then traced the ureter up to the renal pelvis the gonadal vein was coming over the ureter this was left in place and then I traced the ureter to the renal pelvis the renal pelvis was then dissected free I then used a Loki needle to hold up the tissue around the UPJ area to allow for good visualization I then looked at the ureter carefully there was an area of very narrowed disease looking ureter right at the UPJ area that looks suspicious for obstruction I then cut below this the ureter looked healthy below this I then cut at the renal pelvis to spot open up the renal pelvis this looked open and then spatulated the ureter then an anastomosis was then completed between the spatulated ureter and the new renal pelvis this was done in interrupted stitches using 3-0 Monocryl with RB1 stitch after the ureter was then reapproximated to the renal pelvis this was done with interrupted fashion I left the current stent in place I decided not to change stents to the looked healthy still. We then put a drain in next to the repair site to catch and a urine leak and the patient acetic is currently being reversed should go home with a Bella catheter for a week remove the catheter a week later to decompress the collecting system make sure the new anastomosis heals properly and then an month later will get the stent out then dictation on this him Stuntz dressings and subcuticular stitches were used for the incisions and the NIALL drain was left next to the repair. Surgical Findings: Removal of narrowed UPJ segment Complications Complications: No Admit VTE Documentation VTE Present on Admission: No VTE Mechan Device Prophylaxis: SCD's VTE Pharm Prophylaxis ordered?: No
--- NOTE | 2025-01-19 09:28 | PCM.POST.ANE ---
Anesthesia: Postop Eval I Current Vital Signs Temperature: 97.7 F Pulse Rate: 64 Blood Pressure: 111/65 Respiratory Rate: 16 Pulse Ox: 94 Assessment Airway patent: Yes Spontaneous unlabored respirations: Yes nausea: No Vomiting: No Anesthesia Complication: No Fluid Hydration Crystalloid volume administer (ml): 1,200 Total IV fluid infused: 1,200 Progress Note Anesthesia document: Postop Eval 1 completed: Yes
--- NOTE | 2025-01-19 09:43 | POSTOPAN2_ITS ---
Anesthesia Postop Eval I Sum Postop Eval Completion status Anesthesia document: Postop Eval 1 completed: Yes Anesthesia Postop Eval I Summary Anesthesia Postop Eval I Summary: Anesthesia Postop Eval I: Assessment Summary Airway patent Yes 01/19/25 09:28 FLIGHT SECURITY SPECIALIST.TNES Spontaneous unlabored Yes 01/19/25 09:28 FLIGHT SECURITY SPECIALIST.TNES respirations Mental status nausea No 01/19/25 09:28 FLIGHT SECURITY SPECIALIST.TNES Vomiting No 01/19/25 09:28 FLIGHT SECURITY SPECIALIST.TNES Anesthesia Postop Eval I: Fluid Summary Crystalloid volume administer 1,200 01/19/25 09:28 FLIGHT SECURITY SPECIALIST.TNES (ml) Colloids volume administered ( ml) Blood Product volume administered (ml) Total IV fluid infused 1,200 01/19/25 09:28 FLIGHT SECURITY SPECIALIST.TNES Anesthesia Postop Eval I: Summary Notes Anesthesia Complication No 01/19/25 09:28 FLIGHT SECURITY SPECIALIST.TNES Anesthesia Complication Comment: Post-operative progress note Anesthesia: Postop Eval II Evaluation Mental status: Awake Pain Level: 0 nausea: No Vomiting: No
--- NOTE | 2025-01-19 09:43 | PCM.POSTANE2 ---
Anesthesia Postop Eval I Sum Postop Eval Completion status Anesthesia document: Postop Eval 1 completed: Yes Anesthesia Postop Eval I Summary Anesthesia Postop Eval I Summary: Anesthesia Postop Eval I: Assessment Summary Airway patent Yes 01/19/25 09:28 MANAGER MAC.TNES Spontaneous unlabored Yes 01/19/25 09:28 MANAGER MAC.TNES respirations Mental status nausea No 01/19/25 09:28 MANAGER MAC.TNES Vomiting No 01/19/25 09:28 MANAGER MAC.TNES Anesthesia Postop Eval I: Fluid Summary Crystalloid volume administer 1,200 01/19/25 09:28 MANAGER MAC.TNES (ml) Colloids volume administered ( ml) Blood Product volume administered (ml) Total IV fluid infused 1,200 01/19/25 09:28 MANAGER MAC.TNES Anesthesia Postop Eval I: Summary Notes Anesthesia Complication No 01/19/25 09:28 MANAGER MAC.TNES Anesthesia Complication Comment: Post-operative progress note Anesthesia: Postop Eval II Evaluation Mental status: Awake Pain Level: 0 nausea: No Vomiting: No
[2025-01-19] MEDS: 0.9% Normal Saline (1000mL) 1,000 ML 75 ML IV (12:01)
[2025-01-19] MEDS: 0.9% Saline Lock 10 ML Syringe IV (12:06)
[2025-01-19] MEDS: Cefazolin 1 GM/50 ML BAG IV ×2 (15:33→23:45)
[2025-01-19] MEDS: Ketorolac 15 MG/ML Vial IV (15:33)
[2025-01-19] MEDS: Ondansetron 4 MG/2 ML Vial IV (21:26)
[2025-01-19] MEDS: oxyCODONE 5 MG Tablet PO (21:28)
[2025-01-19] MEDS: Docusate Sodium 100 MG Capsule 200 MG PO (21:29)
[2025-01-20] MEDS: 0.9% Normal Saline (1000mL) 1,000 ML 75 ML IV (01:45)
[2025-01-20] MEDS: Ketorolac 15 MG/ML Vial IV (01:50)
[2025-01-20 02:00] VITALS: BP 135/68; PULSE 71; RESP 16; TEMP 36.6; O2SAT 97
[2025-01-20 04:57] VITALS: RESP 16
[2025-01-20] MEDS: Ondansetron 4 MG/2 ML Vial IV (06:30)
[2025-01-20] MEDS: Heparin Injection (Vial) 5,000 UNIT/ML VIAL 5000 UNIT SC (06:31)
[2025-01-20] MEDS: oxyCODONE 5 MG Tablet PO (06:31)
--- NOTE | 2025-01-20 07:53 | PCM.PN.GU ---
Subjective Subjective s/p pyeloplast doing well maye removed home with josefa Objective Data Objective Data Vital Signs: Vital Signs Temp Pulse Resp BP Pulse Ox O2 Del Method 97.9 F 71 16 135/68 H 97 Room Air 01/20/25 02:00 01/20/25 02:00 01/20/25 04:57 01/20/25 02:00 01/20/25 02:00 01/20/25 04:57 Oxygen Delivery Method Room Air Weight: 75 kg Body Mass Index (BMI) 30.2 Intake & Output: Intake and Output for Last 24 Hours 01/18/25 01/19/25 01/20/25 23:59 23:59 23:59 Intake Total 1368.75 / 1368.75 1050 / 1050 Output Total 900 / 900 1015 / 1015 Balance 468.75 / 468.75 35 / 35
[2025-01-20 08:45] LABS: Absolute Neutrophil Count 4.9 X10^3/uL (2.0-7.7); Basophil# 0.04 X10^3/uL; Basophil% 0.5 % (0-1); Eosinophil# 0.04 X10^3/uL; Eosinophils% 0.5 % (0-5); Hematocrit 34.2 % (37-47); Hemoglobin 11.7 g/dL (12.0-15.0); Lymphocyte % 29.4 % (19-41); Mean Corp Hgb Conc 34.2 g/dL (32-36); Mean Corpuscular Hgb 29.3 pg (27.0-32.0); Mean Corpuscular Volume 85.7 fL (81-99); Mean Platelet Vol. 9.8 fl (6.2-12.0); Monocyte# 0.49 X10^3/uL; Monocyte% 6.3 % (0-10); NRBC Flagged by Analyzer 0 % (0-5); Neutrophil # 4.93 X10^3/uL (2.7-7.7); Neutrophil % 62.9 % (47-70); Platelet Count 224 K/mm3 (150-450); RBC Distribution Width CV 14.4 % (11.6-14.6); RBC Distribution Width SD 44.8 fl (35.1-43.9); Red Blood Count 3.99 M/mm3 (4.2-5.4); White Blood Count 7.8 K/mm3 (4.4-11.0)
[2025-01-20 08:58] VITALS: BP 104/50; PULSE 73; RESP 16; TEMP 36.6; O2SAT 95
[2025-01-20 09:05] LABS: Anion Gap 10 (5-15); BUN 13 mg/dL (4-19); BUN/Creat Ratio 14.2 RATIO (10-20); Calcium,Total 8.5 mg/dL (7.6-11.0); Chloride 107 mmol/L (98-108); Creatinine, Serum 0.89 mg/dL (0.70-1.20); EST Glomerular Filtration Rate 71 (>60); Estimated Creatinine Clearance 58.16 ml/min (50-250); Glucose 90 mg/dL (70-99); Potassium 3.4 mmol/L (3.3-5.1); Sodium Level 139 mmol/L (133-145)
[2025-01-20] MEDS: Docusate Sodium 100 MG Capsule 200 MG PO (09:17)
--- NOTE | 2025-01-20 10:11 | CASEMGMT ---
Patient has order for discharge. RN CM in to discuss needs at discharge, family at bedside. Patient denies needs or help at discharge. Patient had no further questions or concerns.
== END 2025-01-20 10:46 | disposition home or self-care (01) ==
LOC: SDC 10:30 → MS3 10:30
PROVIDERS: Admitting Provider Urology; PCP Nurse Practitioner Family; Referring Provider Urology; Visit Provider Urology
PROC: 8E0W4CZ Robotic Assisted Procedure of Trunk Region, Percutaneous Endoscopic Approach (ICD-10-PCS; CPT 50544; principal; 2025-01-19 07:00)
DX: Q62.39 Other obstructive defects of renal pelvis and ureter (principal)
CPT/HCPCS: 50544; 00862; 36415; 80048; 85025; 88305; 93005; 94668; 96361; 96365; 96366; 96375; 99221; A4216; G0378; J2405

== ENCOUNTER → 2025-03-10 | Outpatient (CLI) | payer SELFPAY ==
--- NOTE | 2025-03-10 12:58 | CT_ITS ---
EXAM: CT Abdomen and Pelvis Without and With Intravenous Contrast CLINICAL INDICATION: ENCOUNTER FOR SURGICAL AFTERCARE ON THE GENITOURINARY SX TECHNIQUE: Axial computed tomography images of the abdomen and pelvis without and with intravenous contrast. This CT exam was performed using one or more of the following dose reduction techniques: automated exposure control, adjustment of the mA and/or kV according to patient size, and/or use of iterative reconstruction technique. COMPARISON: CT Abdomen Pelvis dated 12/06/2024 FINDINGS: LUNG BASES: Unremarkable. No mass. No consolidation. ABDOMEN: LIVER: Hepatomegaly with fatty infiltration. GALLBLADDER AND BILE DUCTS: Unremarkable. No calcified stones. No ductal dilation. PANCREAS: Unremarkable. No mass. No ductal dilation. SPLEEN: Unremarkable. No splenomegaly. ADRENALS: Unremarkable. No mass. KIDNEYS AND URETERS: Severe bilateral nephrolithiasis without obstructing calculus. STOMACH AND BOWEL: Fecal retention in the colon consistent with constipation. No obstruction. No mucosal thickening. PELVIS: APPENDIX: No findings to suggest acute appendicitis. BLADDER: Unremarkable. No mass. No stones. REPRODUCTIVE: Unremarkable as visualized. ABDOMEN and PELVIS: INTRAPERITONEAL SPACE: Unremarkable. No free air. No significant fluid collection. BONES/JOINTS: No acute fracture. No dislocation. SOFT TISSUES: Unremarkable. VASCULATURE: Unremarkable. No abdominal aortic aneurysm. LYMPH NODES: Unremarkable. No enlarged lymph nodes. CT/CT Abd/Pelvis W/WO Contrast IMPRESSION: 1. Hepatomegaly with fatty infiltration. 2. Severe bilateral nephrolithiasis without obstructing calculus. 3. Fecal retention in the colon consistent with constipation. Reading [facility]
== END | disposition home or self-care (01) ==
PROVIDERS: PCP Nurse Practitioner Family; Referring Provider Urology; Visit Provider Urology
DX: Z48.816 Encounter for surgical aftercare following surgery on the genitourinary system (principal)
CPT/HCPCS: 74178; Q9967